=== PATIENT | female | born 1955 | race Caucasian/White ===

== ENCOUNTER → 2018-11-01 08:40 | Outpatient (CLI) | payer MEDICARE, SELFPAY ==
[2018-11-01 09:10] LABS: Hematocrit 42.1 % (36-46); Hemoglobin 13.9 g/dL (12.0-16.0); Mean Corpuscular HGB Conc 32.9 % (30-36); Mean Corpuscular Hemoglobin 28.4 PG (26-34); Mean Corpuscular Volume 86.3 fL (80-100); Platelet Count 248 X10^3/uL (150-400); Red Blood Cell Count 4.88 X10^6/uL (4.0-5.2); White Blood Cell Count 5.9 X10^3/uL (4.5-11.0)
[2018-11-01 09:17] LABS: Hemoglobin A1C% w Est Avg Glu 7.1 % (4.0-6.0)
[2018-11-01 09:31] LABS: Appearance Urine UA CLEAR; Bilirubin Urine UA NEGATIVE (NEGATIVE); Color Urine UA YELLOW; Glucose Urine UA NEGATIVE (Negative); Ketones Urine UA NEGATIVE (NEGATIVE); Leukocyte Esterase Urine UA NEGATIVE (NEGATIVE); Nitrite Urine UA NEGATIVE (Negative); Occult Blood Urine UA TRACE-INTACT (Negative); Protein Urine UA NEGATIVE (Negative); Specific Gravity Urine UA 1.025 (1.000-1.035); Urobilinogen Urine UA 0.2 E.U./dL (0.2)
[2018-11-01 09:50] LABS: Alanine Aminotransferase 43 IU/L (9-52); Albumin 4.5 g/dL (3.5-5.0); Albumin Globulin Ratio 1.6 (1.0-2.8); Alkaline Phosphatase 86 U/L (38-126); Aspartate Aminotransferase 39 IU/L (14-36); BUN Creatinine Ratio 33.3 (6-22); Bilirubin Total 0.7 mg/dL (0.2-1.3); Blood Urea Nitrogen 20 mg/dL (7-17); Calcium 9.7 mg/dL (8.4-10.2); Carbon Dioxide 28 mmol/L (22-32); Chloride 102 mmol/L (98-107); Cholesterol 177 mg/dL (140-199); Creatinine Urine Random 99.2 mg/dL; Estimated Glomerular Filt Rate > 60.0 mL/min (>60); Globulin 2.9 g/dL (1.7-4.1); Glucose 178 mg/dL (80-110); HDL Cholesterol 69 mg/dL (40-60); HEMOLYSIS < 15 (0-50); LDL Cholesterol Calculated 69 mg/dL (<100); Potassium 4.7 mmol/L (3.4-5.1); Sodium 140 mmol/L (137-145); Total Protein 7.4 g/dL (6.3-8.2); Triglycerides 193 mg/dL (35-150)
[2018-11-01 09:55] LABS: Microalbumin Urine Random 0.8 mg/dL (0-1.6)
[2018-11-01 10:18] LABS: Thyroid Stimulating Hormone 2.71 uIU/mL (0.47-4.68)
[2018-11-01 12:52] LABS: Neutrophils Absolute Manual 2478 /uL (3000-5900); RBC Morphology Normal Morphology; Total Cells Counted 100
== END ==
PROVIDERS: PCP Family Medicine; Referring Provider Physician Assistant; Visit Provider Family Medicine
DX: E11.9 Type 2 diabetes mellitus without complications (principal); I10 Essential (primary) hypertension; Z51.81 Encounter for therapeutic drug level monitoring
CPT/HCPCS: 36415; 80053; 80061; 81003; 82043; 82570; 83036; 84443; 85025

== ENCOUNTER → 2018-11-29 13:54 | Outpatient (CLI) | payer MEDICARE, SELFPAY ==
[2018-11-29 18:07] LABS: HIV 1 & 2 Ab/Ag 4th Gen Combo NEGATIVE (NEGATIVE); Hep C Virus Ab w/Reflex Quant NEGATIVE s/c (NEGATIVE)
== END ==
PROVIDERS: PCP Family Medicine; Visit Provider Family Medicine
DX: Z77.21 Contact with and (suspected) exposure to potentially hazardous body fluids (principal)
CPT/HCPCS: 36415; 86803; 87389

== ENCOUNTER → 2019-01-31 08:57 | Outpatient (CLI) | payer MEDICARE, SELFPAY ==
[2019-01-31 09:59] LABS: Hemoglobin A1C% w Est Avg Glu 6.9 % (4.0-6.0)
[2019-01-31 10:01] LABS: Alanine Aminotransferase 33 IU/L (<35); Albumin 4.6 g/dL (3.5-5.0); Albumin Globulin Ratio 1.6 (1.0-2.8); Alkaline Phosphatase 78 U/L (38-126); Aspartate Aminotransferase 35 IU/L (14-36); BUN Creatinine Ratio 24.3 (6-22); Bilirubin Total 0.7 mg/dL (0.2-1.3); Blood Urea Nitrogen 17 mg/dL (7-17); Calcium 9.6 mg/dL (8.4-10.2); Carbon Dioxide 28 mmol/L (22-32); Chloride 101 mmol/L (98-107); Estimated Glomerular Filt Rate > 60.0 mL/min (>60); Globulin 2.8 g/dL (1.7-4.1); Glucose 171 mg/dL (80-110); HEMOLYSIS < 15 (0-50); Potassium 4.5 mmol/L (3.4-5.1); Sodium 138 mmol/L (137-145); Total Protein 7.4 g/dL (6.3-8.2)
== END ==
PROVIDERS: PCP Family Medicine; Visit Provider Family Medicine
DX: Z00.00 Encounter for general adult medical examination without abnormal findings (principal); M85.851 Other specified disorders of bone density and structure, right thigh; Z78.0 Asymptomatic menopausal state; E11.9 Type 2 diabetes mellitus without complications
CPT/HCPCS: 36415; 77080; 80053; 83036

== ENCOUNTER → 2019-09-21 10:04 | Outpatient (CLI) | payer MEDICARE, SELFPAY ==
[2019-09-21 11:11] LABS: Hemoglobin A1C% w Est Avg Glu 7.2 % (4.0-6.0)
[2019-09-21 11:55] LABS: BUN Creatinine Ratio 30.5 (6-22); Blood Urea Nitrogen 18 mg/dL (7-17); Calcium 9.9 mg/dL (8.4-10.2); Carbon Dioxide 26 mmol/L (22-32); Chloride 103 mmol/L (98-107); Estimated Glomerular Filt Rate > 60.0 mL/min (>60); Glucose 170 mg/dL (80-110); HEMOLYSIS < 15 (0-50); Potassium 4.4 mmol/L (3.4-5.1); Sodium 137 mmol/L (137-145)
[2019-09-21 11:59] LABS: Creatinine Urine Random 113.2 mg/dL
[2019-09-21 12:18] LABS: Microalbumi Creatinin Ratio Ur 7.9 ug/mg CR (<30); Microalbumin Urine Random 0.9 mg/dL (0-1.6)
== END ==
PROVIDERS: PCP Student in an Organized Health Care Education/Training Program; Referring Provider Student in an Organized Health Care Education/Training Program; Visit Provider Student in an Organized Health Care Education/Training Program
DX: E11.9 Type 2 diabetes mellitus without complications (principal); I10 Essential (primary) hypertension; E66.01 Morbid (severe) obesity due to excess calories; E78.5 Hyperlipidemia, unspecified; Z68.41 Body mass index [BMI] 40.0-44.9, adult
CPT/HCPCS: 36415; 80048; 82043; 82570; 83036

== ENCOUNTER → 2020-04-02 10:52 | Outpatient (CLI) | payer MEDICARE, SELFPAY ==
[2020-04-02 13:18] LABS: Hemoglobin A1C% w Est Avg Glu 8.2 % (4.0-6.0)
== END ==
PROVIDERS: PCP Student in an Organized Health Care Education/Training Program; Referring Provider Student in an Organized Health Care Education/Training Program; Visit Provider Student in an Organized Health Care Education/Training Program
DX: E11.9 Type 2 diabetes mellitus without complications (principal)
CPT/HCPCS: 36415; 83036

== ENCOUNTER → 2020-09-05 09:25 | Outpatient (CLI) | payer MEDICARE, SELFPAY ==
[2020-09-05 10:44] LABS: Hemoglobin A1C% w Est Avg Glu 7.7 % (4.0-6.0)
== END ==
PROVIDERS: PCP Student in an Organized Health Care Education/Training Program; Referring Provider Student in an Organized Health Care Education/Training Program; Visit Provider Student in an Organized Health Care Education/Training Program
DX: E11.9 Type 2 diabetes mellitus without complications (principal)
CPT/HCPCS: 36415; 83036

== ENCOUNTER → 2020-12-16 13:41 | Outpatient (CLI) | payer MEDICARE, SELFPAY ==
[2020-12-16 14:38] LABS: Creatinine Urine Random 140.3 mg/dL
[2020-12-16 14:43] LABS: Microalbumi Creatinin Ratio Ur 4.9 ug/mg CR (<30); Microalbumin Urine Random 0.7 mg/dL (0-1.6)
[2020-12-16 14:58] LABS: Hemoglobin A1C% w Est Avg Glu 6.7 % (4.0-6.0)
[2020-12-16 15:01] LABS: BUN Creatinine Ratio 29.2 (6-22); Blood Urea Nitrogen 19 mg/dL (7-17); Carbon Dioxide 27 mmol/L (22-32); Chloride 105 mmol/L (98-107); Estimated Glomerular Filt Rate > 60.0 mL/min (>60); Glucose 110 mg/dL (80-110); HEMOLYSIS < 15 (0-50); Potassium 4.7 mmol/L (3.4-5.1); Sodium 140 mmol/L (137-145)
[2020-12-16 15:11] LABS: Vitamin D 25 Hydroxy (D3) 37.3 ng/mL (30.0-100.0)
== END ==
PROVIDERS: PCP Student in an Organized Health Care Education/Training Program; Referring Provider Student in an Organized Health Care Education/Training Program; Visit Provider Student in an Organized Health Care Education/Training Program
DX: E11.9 Type 2 diabetes mellitus without complications (principal); M81.0 Age-related osteoporosis without current pathological fracture; I10 Essential (primary) hypertension
CPT/HCPCS: 36415; 80048; 82043; 82306; 82570; 83036

== ENCOUNTER → 2021-06-03 13:14 | Outpatient (CLI) | payer MEDICARE, SELFPAY ==
[2021-06-03 14:11] LABS: Hemoglobin A1C% w Est Avg Glu 7.5 % (4.0-6.0)
[2021-06-03 14:30] LABS: BUN Creatinine Ratio 31.1 (6-22); Blood Urea Nitrogen 19 mg/dL (7-17); Estimated Glomerular Filt Rate > 60.0 mL/min (>60)
== END ==
PROVIDERS: PCP Student in an Organized Health Care Education/Training Program; Referring Provider Student in an Organized Health Care Education/Training Program; Visit Provider Student in an Organized Health Care Education/Training Program
DX: E11.9 Type 2 diabetes mellitus without complications (principal); I10 Essential (primary) hypertension
CPT/HCPCS: 36415; 82565; 83036; 84520

== ENCOUNTER → 2021-08-31 11:15 | Outpatient (CLI) | payer MEDICARE, SELFPAY ==
[2021-08-31 12:24] LABS: COVID19 -Nasal RAPID Negative (Negative)
== END ==
PROVIDERS: PCP Student in an Organized Health Care Education/Training Program; Visit Provider Surgery
DX: Z01.812 Encounter for preprocedural laboratory examination (principal); Z20.822 Contact with and (suspected) exposure to COVID-19
CPT/HCPCS: 87635; C9803

== ENCOUNTER 2021-09-01 11:59 | Day surgery (SDC) | payer MEDICARE, SELFPAY ==
--- NOTE | 2021-09-01 | PATH_ITS ---
[facility] Accession Number: [id number] . 01 Material submitted: . sigmoid colon - SIGMOID . 01 Clinical history: . [facility] ENCOUNTER FOR SCREENING FOR MALGINANT NEOPLASM . 01 Diagnosis: Sigmoid Colon, Biopsy: Polypoid granulation tissue consistent with inflammatory polyp. Negative for dysplasia and malignancy. MRV 09/04/2021 1318 Local . 01 Electronically signed: . Cindy Larkin MD, Pathologist NPI- [id number] . 01 Gross description: . SIGMOID: Received in formalin is 1 fragment(s) of almendarez, soft tissue measuring 0.3 x 0.2 x 0.2 cm submitted entirely in 1 cassette(s) /CPE 09/03/2021 0508 Local . 01 Pathologist provided ICD-10: K63.5 . 01 CPT . 748218 Specimen Comment: A courtesy copy of this report has been sent to [phone] Performed at: 01 [facility] [address] [place] [address] Suite [facility], [place], [place] [id number] MD Davonte Hubbard MD Phone: [phone]
[2021-09-01 12:25] VITALS: BMI 44.8
[2021-09-01 12:41] VITALS: BP 137/80; PULSE 92; RESP 16; TEMP 36.1; O2SAT 99
[2021-09-01] MEDS: LACTATED RINGERS 1,000 ML 200 ML IV (12:44)
--- NOTE | 2021-09-01 12:54 | PM.HP.1 ---
History of Present Illness History of Present Illness Date Patient Seen: 09/01/21 Time Patient Seen: 12:54 Chief complaint: SDC Narrative: The patient presents for colorectal screening. Previous colonoscopy demonstrated a benign polyp 5 years ago. No personal or family history of colon cancer. On further history denies any recent gastrointestinal symptoms. No nausea, vomiting, abdominal pain, loss of appetite, unexplained weight loss, change in bowel habits, diarrhea, constipation, melena, hematochezia, or bright red blood per rectum. Patient History Medical History Diarrhea DM type 2 with diabetic dyslipidemia History of colon polyps History of colon polyps Osteopenia after menopause Family & Social History Family History Father High cholesterol Mother Diabetes mellitus Heart disease High cholesterol Social History: household members spouse Tobacco & Substance use: Smoking Status Former smoker alcohol intake current alcohol intake frequency a few times a month Substance Use Type does not use Meds Home Medications and Allergies Home Medications Medication Instructions Recorded Confirmed Type [coq10] 1 cap PO QDAY ##0 11/23/16 09/01/21 History [estroven] 1 tab PO QDAY ##0 11/23/16 09/01/21 History calcium carbonate 600 mg-vitamin 1 cap PO BID ##0 11/23/16 09/01/21 History D3 10 mcg (400 unit) capsule (Calcium 600 with Vitamin D3) glipizide 5 mg tablet, extended 5 mg PO DAILY #90 tabs 06/29/21 09/01/21 Rx release 24 hr lisinopril 10 mg tablet 10 mg PO QAM #90 tabs 06/29/21 09/01/21 Rx lovastatin 20 mg tablet 20 mg PO QDAY #90 tabs 06/29/21 09/01/21 Rx metformin 1,000 mg tablet 1,000 mg PO BIDWMEAL #180 tabs 06/29/21 09/01/21 Rx [FISH OIL] 1 tab PO BID 09/01/21 09/01/21 History Allergies Allergy/AdvReac Type Severity Reaction Status Date / Time No Known Drug Allergies Allergy Verified 09/01/21 12:22 Exam Vital Signs (past 8 hours): - 09/01/21 12:41 Temperature 97.0 F L Pulse Rate 92 H Respiratory Rate 16 Blood Pressure 137/80 Pulse Oximetry 99 Oxygen Delivery Method Room Air Oxygen Delivery Method Room Air Narrative Exam Narrative: General adult woman alert oriented no acute distress Chest nonlabored respirations extremities warm well perfused Assessment & Plan Assessment & Plan narrative: The patient requires colorectal screening and colonoscopy is recommended. Technical details were discussed. Risks, benefits, alternatives explained. Risks including but not limited to myocardial infarction, aspiration, bleeding, pain, missed lesion, incomplete examination, need for further radiographic studies, colonic perforation, and need for major abdominal surgery were discussed. All questions were answered to their satisfaction, and they are in agreement with this plan. Time Spent With Patient Critical Care time: I spent a total of [] minutes of critical care time on this patient's care today; this time is exclusive of procedural time.
--- NOTE | 2021-09-01 13:24 | PM.OP.COLON ---
Operative Date/Time/Diagnoses Date of procedure: 09/01/21 Time of procedure: 13:24 Pre-op diagnosis: Personal history of colonic polyps Post-op diagnosis: same Procedure & Clinicians Study performed: Colonoscopy Same procedure as scheduled: Yes Indications: Personal history of colonic polyps Surgeon: Josh Watkins Procedure Notes Procedure in detail: Medications: Conscious sedation using 5mg IV midazolam and 150mcg IV of fentanyl The history and physical was performed/updated and the patient is ASA class is 2. The procedure was discussed in detail with the patient. Potential risks complications including infection, bleeding, missed diagnosis, perforation, need for surgery, and were explained. Their questions were answered and informed consent was obtained. Patient was brought to the procedure room and placed standard monitoring equipment. The patient's vital signs were monitored continuously throughout the entire procedure. Prior to starting time-out was performed. The patient was placed in the left lateral recumbent position. Procedural sedation was administered. Examination began with a thorough inspection of the perianal area there was no evidence of fissures, fistulae, external hemorrhoids or cutaneous malignancy. The colonoscopy scope was then placed into the anal canal and was advanced to the cecum, which was identified by the ileocecal valve, the appendiceal orifice and the confluence of the taenia. The scope was then slowly withdrawn examining colon thoroughly in all directions, irrigating it of any residual stool. FINDINGS 1. Sigmoid-5 mm polyp removed with Jumbo forceps 2. Diverticulosis of sigmoid colon The patient tolerated the procedure well. They will be discharged once criteria are met. The prep was of good/excellent quality. The withdrawl time was 7 minutes. The sedation time was 17 minutes. Specimen(s): other (Sigmoid colon polyp) Complications: none Impression: Colonic polyp Post-procedure Recommendations: Colonoscopy in 5 years and High fiber diet Disposition: same day surgery
[2021-09-01] MEDS: MIDAZOLAM 5 MG/5 ML VIAL IV (13:25)
[2021-09-01] MEDS: fentaNYL 250 MCG/5 ML INJ IV (13:25)
[2021-09-01 13:30] VITALS: BP 133/78; PULSE 74; RESP 14; TEMP 36.2; O2SAT 94
[2021-09-01 13:35] VITALS: BP 132/68; PULSE 74; RESP 14; O2SAT 94
[2021-09-01 13:39] VITALS: BP 136/84; PULSE 76; RESP 12; O2SAT 92
[2021-09-01 13:49] VITALS: BP 131/68; PULSE 82; RESP 14; TEMP 36.4; O2SAT 95
== END 2021-09-01 14:05 | disposition home or self-care (01) ==
PROVIDERS: PCP Internal Medicine; Referring Provider Surgery; Visit Provider Surgery
PROC: 0DJD8ZZ Inspection of Lower Intestinal Tract, Via Natural or Artificial Opening Endoscopic (ICD-10-PCS; CPT 45378; principal; 2021-09-01 13:45)
DX: Z12.11 Encounter for screening for malignant neoplasm of colon (principal); Z86.010 Personal history of colon polyps; E11.69 Type 2 diabetes mellitus with other specified complication; E78.5 Hyperlipidemia, unspecified; Z79.84 Long term (current) use of oral hypoglycemic drugs; K57.30 Diverticulosis of large intestine without perforation or abscess without bleeding; K63.5 Polyp of colon
CPT/HCPCS: 45380; 99152; J2250; J3010

== ENCOUNTER → 2021-09-19 10:02 | Outpatient (CLI) | payer MEDICARE, SELFPAY ==
[2021-09-19 11:15] LABS: BUN Creatinine Ratio 27.7 (6-22); Blood Urea Nitrogen 18 mg/dL (7-17); Estimated Glomerular Filt Rate > 60 mL/min (>60)
[2021-09-19 11:17] LABS: Hemoglobin A1C% w Est Avg Glu 7.1 % (4.0-6.0)
== END ==
PROVIDERS: PCP Internal Medicine; Referring Provider Student in an Organized Health Care Education/Training Program; Visit Provider Student in an Organized Health Care Education/Training Program
DX: E11.9 Type 2 diabetes mellitus without complications (principal); I10 Essential (primary) hypertension
CPT/HCPCS: 36415; 82565; 83036; 84520

== ENCOUNTER → 2022-01-10 10:19 | Outpatient (CLI) | payer MEDICARE, SELFPAY ==
--- NOTE | 2022-01-10 10:21 | DI.RAD.S_ITS ---
PROCEDURE: XR CHEST 2V INDICATIONS: Cough TECHNIQUE: 2 views of the chest were acquired. COMPARISON: None. FINDINGS: Surgical changes and devices: None. Lungs and pleura: Small short horizontal linear opacities in the left lower lung. No dense consolidation, pleural effusion, or pneumothorax. Mediastinum: Mediastinal contours are normal. Heart size is normal. Bones and chest wall: No suspicious bony abnormalities. Prior right distal clavicle resection. Soft tissues appear unremarkable. IMPRESSION: 1. No acute cardiopulmonary disease. 2. Probable scar or minor left lower lung atelectasis. Dictated by: Caro Deng M.D. on 01/10/2022 at 10:44 Approved by: Caro Deng M.D. on 01/10/2022 at 10:46
== END ==
PROVIDERS: PCP Internal Medicine; Referring Provider Nurse Practitioner Family; Visit Provider Nurse Practitioner Family
DX: R05.9 Cough, unspecified (principal)
CPT/HCPCS: 71046

== ENCOUNTER 2022-01-12 15:29 | Emergency (ER) | payer MEDICARE, SELFPAY ==
[2022-01-12 15:50] VITALS: BP 149/70; PULSE 97; RESP 20; TEMP 37.9; O2SAT 96; BMI 42.5
--- NOTE | 2022-01-12 15:53 | DI.RAD.S_ITS ---
PROCEDURE: XR CHEST 2V INDICATIONS: SOB TECHNIQUE: 2 views of the chest were acquired. COMPARISON: [facility], CR, XR CHEST 2V, 01/10/2022, 10:20. FINDINGS: Surgical changes and devices: None. Lungs and pleura: Lungs are clear. No pleural effusions or pneumothorax. Mediastinum: Mediastinal contours are normal. Heart size is normal. Bones and chest wall: No suspicious bony abnormalities. Soft tissues appear unremarkable. IMPRESSION: No acute cardiopulmonary findings. Dictated by: Vidya Tsang M.D. on 01/12/2022 at 16:51 Approved by: Vidya Tsang M.D. on 01/12/2022 at 16:51
--- NOTE | 2022-01-12 16:05 | ED_ITS ---
HPI - Fever <Cindy Cummings, [facility] - Last Filed: 01/12/22 18:34> General Chief Complaint: Upper Respiratory Symptoms Stated Complaint: rt ear pain, virus x 6 days, sore throat Time Seen by Provider: 01/12/22 15:47 History of Present Illness HPI Narrative: This is a 66-year-old female who presents to the emergency department complaining of worsening shortness of breath, right ear pain with drainage since last night, endorses having her 3rd COVID vaccine on 01/04/2022 and then developed a with a fever, sore throat and congestion the next day. Patient has had right ear pain, states that her right ear pain came to a peak last night and she felt a sharp pain in her right ear and has had clear/pink drainage coming from her right ear since then. States that her hearing is different. She has been taking Tylenol and Aleve for her fever but states she had a fever yesterday of 101. Was seen in the walk-in clinic 3 days ago and had a chest x-ray completed, X-ray shows probable scar or minor left lower lobe atelectasis. Patient denies any thoracic surgical history, denies any significant medical conditions other than diabetes. She has a history of hypertension, colon polyps, has had Related Data Home Medications Medication Instructions Recorded Confirmed [estroven] 1 tab PO QDAY ##0 11/23/16 01/10/22 calcium carbonate 600 mg-vitamin 1 cap PO BID ##0 11/23/16 01/10/22 D3 10 mcg (400 unit) capsule (Calcium 600 with Vitamin D3) coenzyme Q10 300 mg capsule (Co 300 mg PO DAILY 09/25/21 01/10/22 Q-10) omega-3 fatty acids 1,000 mg 1,000 mg PO DAILY 09/25/21 01/10/22 capsule Previous Rx's Medication Instructions Recorded lisinopril 10 mg tablet 10 mg PO QAM #90 tabs 06/29/21 lovastatin 20 mg tablet 20 mg PO QDAY #90 tabs 06/29/21 semaglutide 7 mg tablet (Rybelsus) 7 mg PO DAILY #90 tabs 09/25/21 metformin 1,000 mg tablet See Rx Instructions .Route 01/05/22 .COMPLEX #180 tabs benzonatate 100 mg capsule 100 mg PO BID PRN cough #20 caps 01/10/22 benzocaine 15 mg-menthol 2.6 mg 1 jw mucous membrane Q2-4H PRN 01/12/22 lozenges (Cepacol Sore Throat sore throat #16 ea (benzocaine-menthol)) cetirizine 10 mg tablet 20 mg PO BEDTIME 8 days #30 tabs 01/12/22 guaifenesin 600 mg tablet, 600 mg PO BID PRN productive cough 01/12/22 extended release 12 hr (Mucinex) #30 tabs Allergies Allergy/AdvReac Type Severity Reaction Status Date / Time No Known Drug Allergies Allergy Verified 01/10/22 09:50 Review of Systems <NIKOS Castro - Last Filed: 01/12/22 18:34> Review of Systems Narrative: Review of systems is negative for acute abnormalities unless otherwise noted in HPI Patient History <NIKOS Castro - Last Filed: 01/12/22 18:34> Medical History Advanced directives, counseling/discussion Diarrhea DM type 2 with diabetic dyslipidemia History of colon polyps Medicare annual wellness visit, initial Osteopenia after menopause Family History Father High cholesterol Mother Diabetes mellitus Heart disease High cholesterol Social History household members: spouse Smoking Status: Former smoker alcohol intake: current Smoking Status: Former smoker alcohol intake frequency: a few times a month Substance Use Type: does not use Exam <NIKOS Castro - Last Filed: 01/12/22 18:34> Narrative Exam Narrative: Reviewed vitals signs and nursing notes. General: cooperative, comfortable, hoarse voice, appears uncomfortable, tachypneic, coughing, well groomed, febrile to 100 HEENT: symmetrical facial expressions, moist mucous membranes, posterior pharynx with erythema, nasal congestion, no sinus tenderness, left TM is bulging with mild erythema, presumed middle ear effusion, right TM is ruptured, clear/pink drainage coming from right ear canal, no tenderness over mastoids bilaterally Cardiovascular: regular rate and rhythm, no peripheral edema, warm extremities Respiratory: normal effort, coughing, productive cough, able to speak in co mplete sentences, without wheezing, stridor, diminished breath sounds left lower lobe, No retractions GI: abdomen soft, nontender to palpation, nondistended, without masses, rebound tenderness or exquisite tenderness with exam. MSK: moves all extremities, neurovascularly intact, no weakness, normal tone Skin: brisk capillary refill, without pallor or erythema Neuro: normal speech and cognition, A&O x3, ambulatory, clear speech Psych: mental status is grossly normal, congruent mood, normal affect, pleasant and cooperative Initial Vital Signs Initial Vital Signs: Vital Signs Temperature 100.2 F H 01/12/22 15:50 Pulse Rate 97 H 01/12/22 15:50 Respiratory Rate 20 01/12/22 15:50 Blood Pressure 149/70 H 01/12/22 15:50 Pulse Oximetry 96 01/12/22 15:50 Oxygen Delivery Method 01/12/22 15:50 <Edda Ohara DO - Last Filed: 01/17/22 05:10> Initial Vital Signs Initial Vital Signs: Vital Signs Temperature 100.2 F H 01/12/22 15:50 Pulse Rate 97 H 01/12/22 15:50 Respiratory Rate 20 01/12/22 15:50 Blood Pressure 149/70 H 01/12/22 15:50 Pulse Oximetry 96 01/12/22 15:50 Oxygen Delivery Method 01/12/22 15:50 Course <NIKOS Castro - Last Filed: 01/12/22 18:34> Orders Ordered: Discontinued Medications Acetaminophen (Acetaminophen 325 Mg Tablet) 975 mg PO NOW ONE Stop: 01/12/22 15:54 Last Admin: 01/12/22 16:17 Dose: 975 mg Documented By: LAN Amoxicillin/Clavulanate Potassium (Amoxicillin/Clav 875/125 Mg) 1 tab PO NOW ONE Stop: 01/12/22 16:10 Last Admin: 01/12/22 16:21 Dose: 1 tab Documented By: LAN Azithromycin (Azithromycin 250 Mg Tablet) 500 mg PO NOW ONE Stop: 01/12/22 16:10 Last Admin: 01/12/22 16:21 Dose: 500 mg Documented By: LAN Guaifenesin (Guaifenesin Er 600 Mg Tab) 600 mg PO NOW ONE Stop: 01/12/22 15:56 Last Admin: 01/12/22 16:17 Dose: 600 mg Documented By: LAN Ketorolac Tromethamine (Ketorolac 10 Mg Tablet) 10 mg PO NOW ONE Stop: 01/12/22 15:54 Last Admin: 01/12/22 16:16 Dose: 10 mg Documented By: LAN Loratadine (Loratadine 10 Mg Tablet) 10 mg PO NOW ONE Stop: 01/12/22 16:10 Prednisone (Prednisone 20 Mg Tablet) 40 mg PO NOW ONE Stop: 01/12/22 17:35 Vital Signs Vital signs: Vital Signs - 8 hr 01/12/22 15:50 Temperature 100.2 F H Pulse Rate 97 H Respiratory Rate 20 Blood Pressure 149/70 H Pulse Oximetry 96 Oxygen Delivery Method Room Air <Edda Ohara DO - Last Filed: 01/17/22 05:10> Orders Ordered: Discontinued Medications Acetaminophen (Acetaminophen 325 Mg Tablet) 975 mg PO NOW ONE Stop: 01/12/22 15:54 Last Admin: 01/12/22 16:17 Dose: 975 mg Documented By: LAN Amoxicillin/Clavulanate Potassium (Amoxicillin/Clav 875/125 Mg) 1 tab PO NOW ONE Stop: 01/12/22 16:10 Last Admin: 01/12/22 16:21 Dose: 1 tab Documented By: LAN Azithromycin (Azithromycin 250 Mg Tablet) 500 mg PO NOW ONE Stop: 01/12/22 16:10 Last Admin: 01/12/22 16:21 Dose: 500 mg Documented By: LAN Guaifenesin (Guaifenesin Er 600 Mg Tab) 600 mg PO NOW ONE Stop: 01/12/22 15:56 Last Admin: 01/12/22 16:17 Dose: 600 mg Documented By: LAN Ketorolac Tromethamine (Ketorolac 10 Mg Tablet) 10 mg PO NOW ONE Stop: 01/12/22 15:54 Last Admin: 01/12/22 16:16 Dose: 10 mg Documented By: LAN Loratadine (Loratadine 10 Mg Tablet) 10 mg PO NOW ONE Stop: 01/12/22 16:10 Prednisone (Prednisone 20 Mg Tablet) 40 mg PO NOW ONE Stop: 01/12/22 17:35 Vital Signs Vital signs: Vital Signs - 8 hr 01/12/22 15:50 Temperature 100.2 F H Pulse Rate 97 H Respiratory Rate 20 Blood Pressure 149/70 H Pulse Oximetry 96 Oxygen Delivery Method Room Air MDM - Fever <Cindy Cummings, [facility] - Last Filed: 01/12/22 18:34> Medical Records Medical records narrative: PROCEDURE:? XR CHEST 2V ? INDICATIONS:? Cough ? TECHNIQUE:? 2 views of the chest were acquired.? ? COMPARISON:? None. ? FINDINGS:? ? Surgical changes and devices:? None.? ? Lungs and pleura:? Small short horizontal linear opacities in the left lower lung.? No dense consolidation, pleural effusion, or pneumothorax. ? Mediastinum:? Mediastinal contours are normal.? Heart size is normal.? ? Bones and chest wall:? No suspicious bony abnormalities.? Prior right distal clavicle resection.? Soft tissues appear unremarkable.? ? IMPRESSION:? ? 1. No acute cardiopulmonary disease.? ? 2. Probable scar or minor left lower lung atelectasis.? ? ? Dictated by: Caro Deng M.D. on 01/10/2022 at 10:44 ? ? Approved by: Caro Deng M.D. on 01/10/2022 at 10:46 ? Lab Data Labs: Lab Results 01/12/22 Range/Units 16:23 Chlamy pneumoniae PCR Not detected (Not Detect) Adenovirus (PCR) Not detected (Not Detect) B. pertussis DNA (PCR) Not detected (Not Detecte) B.parapertussis DNA PCR Not detected (Not Detecte) Coronavirus OC43 (PCR) Not detected (Not Detect) Coronavirus HKU1 (PCR) Not detected (Not Detect) Coronavirus 229E (PCR) Not detected (Not Detect) SARS-CoV-2 (PCR) Not detected (Not Detecte) Coronavirus NL63 (PCR) Not detected (Not Detect) Human Metapneumovir PCR Not detected (Not Detect) Influenza Type A (PCR) Not detected (Not Detect) Influenza Type B (PCR) Not detected (Not Detect) M. pneumoniae (PCR) Not detected (Not Detect) Parainfluenza 1 (PCR) Not detected (Not Detect) Parainfluenza 2 (PCR) Not detected (Not Detect) Parainfluenza 3 (PCR) Not detected (Not Detect) Parainfluenza 4 (PCR) Not detected (Not Detect) RSV (PCR) Not detected (Not Detect) Entero/Rhino (PCR) Not detected (Not Detect) MDM Narrative Medical decision making narrative: This is a 66-year-old female presents to the emergency department for concern about upper respiratory infection over the last 2 weeks with a negative COVID test at home. She received her 3rd COVID vaccination on 01/03/2022 and developed upper respiratory congestion, right eye conjunctivitis, sore throat, cough, shortness of breath. She was seen in the walk-in clinic and had a chest x-ray completed on 01/10/2022 which showed minor lower left lobe atelectasis, no acute cardiopulmonary disease. Her chest x-ray today does not show acute cardiopulmonary findings, she continues to have a productive cough which is frequent, shortness of breath with exertion, fever today and in the emergency department of 100.2 F. Her respiratory panel PCR is negative for all tested viruses, she is had mild tachypnea with a respiratory rate of 18 to 20, without hypoxia, wheezing, or abnormal breath sounds. Due to patient's length of ill ness, opted to treat her symptoms and her previous x-ray for community-acquired pneumonia, she was given azithromycin 500 mg, Augmentin, loratadine, and 40 mg of prednisone. She is a type 2 diabetic with some comorbidities. She was prescribed cetirizine to use nightly, throat lozenges for her sore throat, Augmentin and azithromycin for a 5 day course. She is encouraged to return to the emergency department for any worsening of her symptoms, stay hydrated, use Tylenol and ibuprofen as needed for fever and pain and dosing were reviewed. Patient is appropriate and amenable to discharge home. Vital signs are stable on repeat examination is unremarkable. Patient has been informed of results. Patient has been given strict return to ER precautions for any new or worsening symptoms. Patient understands to follow up closely with outpatient providers as instructed. Patient understands plan and agrees to discharge home. All questions and concerns answered at this time. <Edda Ohara, DO - Last Filed: 01/17/22 05:10> Lab Data Labs: Lab Results 01/12/22 Range/Units 16:23 Chlamy pneumoniae PCR Not detected (Not Detect) Adenovirus (PCR) Not detected (Not Detect) B. pertussis DNA (PCR) Not detected (Not Detecte) B.parapertussis DNA PCR Not detected (Not Detecte) Coronavirus OC43 (PCR) Not detected (Not Detect) Coronavirus HKU1 (PCR) Not detected (Not Detect) Coronavirus 229E (PCR) Not detected (Not Detect) SARS-CoV-2 (PCR) Not detected (Not Detecte) Coronavirus NL63 (PCR) Not detected (Not Detect) Human Metapneumovir PCR Not detected (Not Detect) Influenza Type A (PCR) Not detected (Not Detect) Influenza Type B (PCR) Not detected (Not Detect) M. pneumoniae (PCR) Not detected (Not Detect) Parainfluenza 1 (PCR) Not detected (Not Detect) Parainfluenza 2 (PCR) Not detected (Not Detect) Parainfluenza 3 (PCR) Not detected (Not Detect) Parainfluenza 4 (PCR) Not detected (Not Detect) RSV (PCR) Not detected (Not Detect) Entero/Rhino (PCR) Not detected (Not Detect) Discharge Plan Departure Patient Disposition: Home Clinical Impression: Rupture of right tympanic membrane, Upper respiratory infection, Increasing shortness of breath Instructions: Pneumonia-Adult, Common Cold, Ruptured Eardrum Activity Restrictions/Additional Instructions: *You have been diagnosed with upper respiratory infection which could be bacterial or viral, a ruptured right tympanic membrane likely related to congestion and eustachian tube dysfunction. Please take 250 mg of azithromycin daily for the next 5 days, take Augmentin twice a day for the next 5 days, this will treat your ear and your upper respiratory infection if bacterial. Please take 20 mg of Zyrtec at nighttime at least until you are better, Mucinex as needed for a productive cough, prednisone 40 mg daily for the next 3 days to help with inflammation and the throat lozenges as needed for sore throat. Please follow-up with your primary care provider if you have any worsening, come back for another evaluation if you continue to have fevers. Thank you for coming in and for your patients today, I hope you feel better soon. *What to do: *Please continue to take your regular medications as directed. [x ] New medication prescriptions sent to your pharmacy: [ [facility]. [ ] New medication written as a paper prescription [ ] No new medications given *Please follow up with your primary care provider in 2-3 days, call for an appointment. Let them know you were seen in the Emergency Department and that we asked that you be seen for follow-up. We will electronically transmit a record of today's note if your PCP is in our system *If you do not have a primary care provider please contact [phone] to establish care with one of the [facility] primary care providers. *Return to Emergency Department if you should have any new, worsening, or concerning symptoms, such as [fever greater than 101F, chills, worsening pain, persistent vomiting or other bothersome symptoms]. Prescriptions: New guaifenesin [Mucinex] 600 mg tablet extended release 12hr 600 mg PO BID PRN (Reason: productive cough) Qty: 30 0RF cetirizine 10 mg tablet 20 mg PO BEDTIME 8 Days Qty: 30 0RF Cepacol Sore Throat (rena-men) 15-2.6 mg lozenge 1 jw mucous membrane Q2-4H PRN (Reason: sore throat) Qty: 16 0RF No Action benzonatate 100 mg capsule 100 mg PO BID PRN (Reason: cough) Qty: 20 0RF calcium carbonate-vitamin D3 [Calcium 600 with Vitamin D3] 600 MG/200 IU capsule 1 cap PO BID Qty: 0 [estroven] 1 tab PO QDAY Qty: 0 lisinopril 10 mg tablet 10 mg PO QAM Qty: 90 3RF lovastatin 20 mg tablet 20 mg PO QDAY Qty: 90 3RF metformin 1,000 mg tablet See Rx Instructions .ROUTE .COMPLEX Qty: 180 3RF Dose Instruction: TAKE 1 TABLET TWICE A DAY WITH MEALS Rx Instructions: TAKE 1 TABLET TWICE A DAY WITH MEALS Co Q-10 300 mg capsule 300 mg PO DAILY omega-3 fatty acids 1,000 mg capsule 1,000 mg PO DAILY Rybelsus 7 mg tablet 7 mg PO DAILY Qty: 90 3RF Rx Instructions: start in 1 month after 3mg prescription completed Referrals: Andrew Neal MD [Primary Care Provider] - Visit Report Forms: Patient Portal/API <Edda Ohara DO - Last Filed: 01/17/22 05:10> Cosign ED Attending Emilyature Attestation: I was immediately available in the department for consultation. Documentation has been reviewed.
[2022-01-12] MEDS: KETOROLAC 10 MG TABLET PO (16:16)
[2022-01-12] MEDS: ACETAMINOPHEN 325 MG TABLET 975 MG PO (16:17)
[2022-01-12] MEDS: guaiFENesin ER 600 MG TAB PO (16:17)
[2022-01-12] MEDS: AMOXICILLIN/CLAV 875/125 MG 1 TAB PO (16:21)
[2022-01-12] MEDS: AZITHROMYCIN 250 MG TABLET 500 MG PO (16:21)
[2022-01-12 17:21] LABS: Adenovirus Not Detected (Not Detect); B. parapertussis Not Detected (Not Detecte); Bordetella pertussis Not Detected (Not Detecte); Chlamydophila pneumoniae Not Detected (Not Detect); Coronavirus 229E Not Detected (Not Detect); Coronavirus HKU1 Not Detected (Not Detect); Coronavirus NL 63 Not Detected (Not Detect); Coronavirus OC43 Not Detected (Not Detect); Human Metapneumovirus Not Detected (Not Detect); Human Rhinovirus/Enterovirus Not Detected (Not Detect); Influenza A Not Detected (Not Detect); Influenza B Not Detected (Not Detect); Mycoplasma pneumoniae Not Detected (Not Detect); Parainfluenza Virus 1 Not Detected (Not Detect); Parainfluenza Virus 2 Not Detected (Not Detect); Parainfluenza Virus 3 Not Detected (Not Detect); Parainfluenza Virus 4 Not Detected (Not Detect); Respiratory Syncytial Virus Not Detected (Not Detect); SARS- CoV-2 Not Detected (Not Detecte)
== END 2022-01-12 18:00 | disposition home or self-care (01) ==
PROVIDERS: Emergency Provider Nurse Practitioner Critical Care Medicine; PCP Internal Medicine; Referring Provider Internal Medicine
DX: H72.91 Unspecified perforation of tympanic membrane, right ear (principal); J06.9 Acute upper respiratory infection, unspecified; R06.02 Shortness of breath; Z20.822 Contact with and (suspected) exposure to COVID-19
CPT/HCPCS: 71046; 87633; 99283

== ENCOUNTER → 2022-01-16 08:37 | Outpatient (CLI) | payer MEDICARE, SELFPAY ==
[2022-01-16 12:09] LABS: Hematocrit 37.2 % (36-46); Hemoglobin 12.4 g/dL (12.0-16.0); Mean Corpuscular HGB Conc 33.4 % (30-36); Mean Corpuscular Hemoglobin 28.4 PG (26-34); Mean Corpuscular Volume 84.9 fL (80-100); Platelet Count 393 X10^3/uL (150-400); Red Blood Cell Count 4.38 X10^6/uL (4.0-5.2); Red Cell Distribution Width 13.8 % (11.6-14.8)
[2022-01-16 13:41] LABS: Hemoglobin A1C% w Est Avg Glu 7.7 % (4.0-6.0)
[2022-01-16 13:57] LABS: Aspartate Aminotransferase 30 IU/L (14-36); BUN Creatinine Ratio 33.3 (6-22); Blood Urea Nitrogen 22 mg/dL (7-17); Calcium 9.5 mg/dL (8.4-10.2); Carbon Dioxide 26 mmol/L (22-32); Chloride 98 mmol/L (98-107); Cholesterol 198 mg/dL (140-199); Estimated Glomerular Filt Rate > 60 mL/min (>60); Glucose 218 mg/dL (80-110); HDL Cholesterol 57 mg/dL (40-60); HEMOLYSIS < 15 (0-50); LDL Cholesterol Calculated 98 mg/dL (<100); Potassium 4.2 mmol/L (3.4-5.1); Sodium 137 mmol/L (137-145); Triglycerides 217 mg/dL (35-150)
[2022-01-16 14:28] LABS: TSH w/ Reflex to FT4 1.18 uIU/mL (0.47-4.68)
[2022-01-16 14:42] LABS: Vitamin B12 519 pg/mL (239-931)
[2022-01-16 17:26] LABS: Microalbumin Urine Random 2.1 mg/dL (0-1.6)
[2022-01-16 17:29] LABS: Creatinine Urine Random 132.1 mg/dL; Microalbumi Creatinin Ratio Ur 15.8 ug/mg CR (<30)
== END ==
PROVIDERS: PCP Internal Medicine; Referring Provider Internal Medicine; Visit Provider Internal Medicine
DX: E11.69 Type 2 diabetes mellitus with other specified complication (principal); I10 Essential (primary) hypertension; E78.5 Hyperlipidemia, unspecified; M85.80 Other specified disorders of bone density and structure, unspecified site; R19.7 Diarrhea, unspecified; Z78.0 Asymptomatic menopausal state; E53.8 Deficiency of other specified B group vitamins
CPT/HCPCS: 36415; 80048; 80061; 82043; 82570; 82607; 83036; 84443; 84450; 85027

== ENCOUNTER → 2022-05-14 10:52 | Outpatient (CLI) | payer MEDICARE, SELFPAY ==
[2022-05-14 12:34] LABS: Hemoglobin A1C% w Est Avg Glu 7.8 % (4.0-6.0)
[2022-05-14 12:49] LABS: Alanine Aminotransferase 36 IU/L (<35); Albumin 4.4 g/dL (3.5-5.0); Albumin Globulin Ratio 1.3 (1.0-2.8); Alkaline Phosphatase 84 U/L (38-126); Aspartate Aminotransferase 41 IU/L (14-36); Bilirubin Total 0.8 mg/dL (0.2-1.3); Blood Urea Nitrogen 18 mg/dL (7-17); Calcium 9.1 mg/dL (8.4-10.2); Carbon Dioxide 27 mmol/L (22-32); Chloride 98 mmol/L (98-107); Estimated Glomerular Filt Rate > 60 mL/min (>60); Globulin 3.3 g/dL (1.7-4.1); Glucose 270 mg/dL (80-110); HEMOLYSIS < 15 (0-50); Potassium 3.9 mmol/L (3.4-5.1); Sodium 138 mmol/L (137-145); Total Protein 7.7 g/dL (6.3-8.2)
== END ==
PROVIDERS: PCP Internal Medicine; Referring Provider Internal Medicine; Visit Provider Internal Medicine
DX: E11.69 Type 2 diabetes mellitus with other specified complication (principal); E78.5 Hyperlipidemia, unspecified; I10 Essential (primary) hypertension
CPT/HCPCS: 36415; 80053; 83036

== ENCOUNTER → 2022-08-17 12:55 | Outpatient (CLI) | payer MEDICARE, SELFPAY ==
[2022-08-17 13:58] LABS: Alanine Aminotransferase 30 IU/L (<35); Albumin 4.7 g/dL (3.5-5.0); Albumin Globulin Ratio 1.5 (1.0-2.8); Alkaline Phosphatase 85 U/L (38-126); Aspartate Aminotransferase 31 IU/L (14-36); BUN Creatinine Ratio 29.7 (6-22); Bilirubin Total 0.7 mg/dL (0.2-1.3); Blood Urea Nitrogen 19 mg/dL (7-17); Calcium 10.1 mg/dL (8.4-10.2); Carbon Dioxide 29 mmol/L (22-32); Chloride 100 mmol/L (98-107); Estimated Glomerular Filt Rate > 60 mL/min (>60); Globulin 3.2 g/dL (1.7-4.1); Glucose 112 mg/dL (80-110); HEMOLYSIS < 15 (0-50); Potassium 4.8 mmol/L (3.4-5.1); Sodium 136 mmol/L (137-145); Total Protein 7.9 g/dL (6.3-8.2)
[2022-08-18 06:07] LABS: x Labcorp Estim. Avg Glu (eAG) 160 mg/dL (.); x Labcorp Hemoglobin A1c 7.2 % (4.8-5.6)
== END ==
PROVIDERS: PCP Internal Medicine; Referring Provider Internal Medicine; Visit Provider Internal Medicine
DX: E11.69 Type 2 diabetes mellitus with other specified complication (principal); E78.5 Hyperlipidemia, unspecified; I10 Essential (primary) hypertension; K75.81 Nonalcoholic steatohepatitis (NASH)
CPT/HCPCS: 36415; 80053; 83036

== ENCOUNTER → 2022-11-16 13:47 | Outpatient (CLI) | payer MEDICARE, SELFPAY ==
[2022-11-16 15:23] LABS: Hemoglobin A1C% w Est Avg Glu 6.6 % (4.0-6.0)
[2022-11-16 15:35] LABS: Aspartate Aminotransferase 37 IU/L (14-36); BUN Creatinine Ratio 36.4 (6-22); Blood Urea Nitrogen 24 mg/dL (7-17); Calcium 9.6 mg/dL (8.4-10.2); Carbon Dioxide 26 mmol/L (22-32); Chloride 102 mmol/L (98-107); Cholesterol 185 mg/dL (140-199); Estimated Glomerular Filt Rate > 60 mL/min (>60); Glucose 114 mg/dL (80-110); HDL Cholesterol 70 mg/dL (40-60); LDL Cholesterol Calculated 44 mg/dL (<100); Potassium 4.1 mmol/L (3.4-5.1); Sodium 139 mmol/L (137-145); Triglycerides 357 mg/dL (35-150)
[2022-11-16 15:36] LABS: HEMOLYSIS 52 (0-50)
[2022-11-16 16:34] LABS: Creatinine Urine Random 192.5 mg/dL
[2022-11-16 16:37] LABS: Microalbumi Creatinin Ratio Ur 26.4 ug/mg CR (<30); Microalbumin Urine Random 5.1 mg/dL (0-1.6)
== END ==
PROVIDERS: PCP Internal Medicine; Referring Provider Internal Medicine; Visit Provider Internal Medicine
DX: E11.69 Type 2 diabetes mellitus with other specified complication (principal); I10 Essential (primary) hypertension; E78.5 Hyperlipidemia, unspecified
CPT/HCPCS: 36415; 80048; 80061; 82043; 82570; 83036; 84450

== ENCOUNTER → 2023-05-24 10:17 | Outpatient (CLI) | payer MEDICARE, SELFPAY ==
[2023-05-24 11:29] LABS: BUN Creatinine Ratio 29.4 (6-22); Blood Urea Nitrogen 20 mg/dL (7-17); Carbon Dioxide 27 mmol/L (22-32); Chloride 104 mmol/L (98-107); Estimated Glomerular Filt Rate > 60 mL/min (>60); Glucose 222 mg/dL (80-110); HEMOLYSIS < 15 (0-50); Potassium 4.4 mmol/L (3.4-5.1); Sodium 138 mmol/L (137-145)
[2023-05-24 11:31] LABS: Hemoglobin A1C% w Est Avg Glu 6.9 % (4.0-6.0)
== END ==
PROVIDERS: PCP Internal Medicine; Referring Provider Internal Medicine; Visit Provider Internal Medicine
DX: E11.69 Type 2 diabetes mellitus with other specified complication (principal); E78.5 Hyperlipidemia, unspecified; I10 Essential (primary) hypertension
CPT/HCPCS: 36415; 80048; 83036

== ENCOUNTER → 2023-11-22 08:31 | Outpatient (CLI) | payer MEDICARE, SELFPAY ==
[2023-11-22 11:01] LABS: Microalbumin Urine Random 2.2 mg/dL (0-1.6)
[2023-11-22 11:03] LABS: Creatinine Urine Random 173.53 mg/dL
[2023-11-22 11:03] LABS: Aspartate Aminotransferase 28 IU/L (14-36); BUN Creatinine Ratio 25.8 (6-22); Blood Urea Nitrogen 17 mg/dL (7-17); Calcium 9.2 mg/dL (8.4-10.2); Carbon Dioxide 23 mmol/L (22-32); Chloride 106 mmol/L (98-107); Cholesterol 172 mg/dL (140-199); Estimated Glomerular Filt Rate > 60 mL/min (>60); Glucose 128 mg/dL (80-110); HDL Cholesterol 88 mg/dL (40-60); HEMOLYSIS < 15 (0-50); LDL Cholesterol Calculated 53 mg/dL (<100); Potassium 4.3 mmol/L (3.4-5.1); Sodium 137 mmol/L (137-145); Triglycerides 153 mg/dL (35-150)
[2023-11-22 14:15] LABS: Hemoglobin A1C% w Est Avg Glu 6.1 % (4.0-6.0)
== END ==
PROVIDERS: PCP Internal Medicine; Referring Provider Internal Medicine; Visit Provider Internal Medicine
DX: E11.69 Type 2 diabetes mellitus with other specified complication (principal); E78.5 Hyperlipidemia, unspecified; I10 Essential (primary) hypertension
CPT/HCPCS: 36415; 80048; 80061; 82043; 82570; 83036; 84450

== ENCOUNTER → 2024-05-22 11:01 | Outpatient (CLI) | payer MEDICARE, SELFPAY ==
[2024-05-22 12:02] LABS: BUN Creatinine Ratio 26.9 (6-22); Blood Urea Nitrogen 18 mg/dL (7-17); Calcium 9.9 mg/dL (8.4-10.2); Carbon Dioxide 29 mmol/L (22-32); Chloride 101 mmol/L (98-107); Estimated Glomerular Filt Rate > 60 mL/min (>60); Glucose 180 mg/dL (80-110); HEMOLYSIS < 15 (0-50); Potassium 4.6 mmol/L (3.4-5.1); Sodium 140 mmol/L (137-145)
== END ==
LOC: LAB 11:02
PROVIDERS: PCP Internal Medicine; Referring Provider Internal Medicine; Visit Provider Internal Medicine
DX: E11.69 Type 2 diabetes mellitus with other specified complication (principal); E78.5 Hyperlipidemia, unspecified
CPT/HCPCS: 36415; 80048; 83036

== ENCOUNTER → 2024-12-05 10:18 | Outpatient (CLI) | payer MEDICARE, SELFPAY ==
[2024-12-05 12:09] LABS: Hemoglobin A1C% w Est Avg Glu 6.3 % (4.0-6.0)
[2024-12-05 12:34] LABS: Blood Urea Nitrogen 19 mg/dL (7-17); Calcium 9.8 mg/dL (8.4-10.2); Carbon Dioxide 25 mmol/L (22-32); Chloride 104 mmol/L (98-107); Cholesterol 173 mg/dL (140-199); Estimated Glomerular Filt Rate > 60 mL/min (>60); Glucose 113 mg/dL (70-99); HDL Cholesterol 82 mg/dL (40-60); HEMOLYSIS < 15 (0-50); Potassium 4.4 mmol/L (3.4-5.1); Sodium 140 mmol/L (137-145); Triglycerides 151 mg/dL (35-150)
[2024-12-05 12:42] LABS: Microalbumi Creatinin Ratio Ur 10.0 ug/mg CR (<30)
== END ==
PROVIDERS: PCP Internal Medicine; Referring Provider Internal Medicine; Visit Provider Internal Medicine
DX: E11.69 Type 2 diabetes mellitus with other specified complication (principal); E78.5 Hyperlipidemia, unspecified; I10 Essential (primary) hypertension
CPT/HCPCS: 36415; 80048; 80061; 82043; 82570; 83036; 84450

== ENCOUNTER → 2024-12-11 09:42 | Outpatient (CLI) | payer MEDICARE, SELFPAY ==
[2024-12-11 10:38] LABS: Hematocrit 39.6 % (36-46); Hemoglobin 13.4 g/dL (12.0-16.0); Mean Corpuscular HGB Conc 33.8 % (30-36); Mean Corpuscular Hemoglobin 28.8 PG (26-34); Mean Corpuscular Volume 84.9 fL (80-100); Platelet Count 247 X10^3/uL (150-400)
[2024-12-11 11:40] LABS: TSH w/ Reflex to FT4 1.70 uIU/mL (0.47-4.68)
== END ==
PROVIDERS: PCP Internal Medicine; Referring Provider Internal Medicine; Visit Provider Internal Medicine
DX: E11.69 Type 2 diabetes mellitus with other specified complication (principal); E78.5 Hyperlipidemia, unspecified; I10 Essential (primary) hypertension
CPT/HCPCS: 36415; 84443; 85027

== ENCOUNTER → 2024-12-13 10:43 | Outpatient (CLI) | payer MEDICARE, SELFPAY ==
--- NOTE | 2024-12-13 10:44 | DI.RAD.S_ITS ---
PROCEDURE: XR DEXA AXIAL SKELETON INDICATIONS: osteopenia COMPARISON: [facility], , XR DEXA AXIAL SKELETON, 01/31/2019, 10:25. FINDINGS: Lumbar Spine: Bone mineral density is 0.92 g/cm2, T score -1.2, osteopenia Left Femoral Neck: Bone mineral density 0.7 g/cm2, T score -1.3. Left Hip: Bone mineral density is 0.92 g/cm2, T score -0.2, osteopenia. Fracture Risk Calculation (when applicable): 10-year fracture risk of a major osteoporotic fracture 8.4 percent and of a hip fracture 1.0 percent. (T score greater or equal to -1.0 to: NORMAL) (T score from -1.1 to -2.4: OSTEOPENIA) (T score less than or equal to -2.5: OSTEOPOROSIS) IMPRESSION: Osteopenia Follow-up guidelines as follows: Osteoporosis: Consider a repeat DEXA and Vertebral Fracture Assessment (VFA) exam in 2 years or sooner if medically necessary, to reassess this patient's status. Osteopenia: Consider a repeat DEXA in 2-3 years to reassess this patient's status, or if there is a new clinical indication. Normal: Consider a repeat DEXA in 5 years or sooner, or if there is a new clinical indication. All treatment decisions require clinical judgment and consideration of individual patient factors, including patient preferences, comorbidities, previous drug use, risk factors not captured in the FRAX model (e.g., frailty, falls, vitamin D deficiency, increased bone turnover, interval significant decline in bone density ) and possible under- or over-estimation of fracture risk by FRAX. In addition, the NOF Guide recommends that FDA-approved medical therapies be considered in postmenopausal women and men age >= 50 years with a: * Hip or vertebral (clinical or morphometric) fracture * T-score of <=-2.5 at the spine or hip * Ten-year fracture probability by FRAX of >= 3% for hip fracture or >=20% for major osteoporotic fracture. Dictated by: Baltazar Rodarte M.D. on 12/13/2024 at 16:48 Approved by: Baltazar Rodarte M.D. on 12/13/2024 at 16:49
== END ==
LOC: RAD 10:44
PROVIDERS: PCP Internal Medicine; Referring Provider Internal Medicine; Visit Provider Internal Medicine
DX: M85.89 Other specified disorders of bone density and structure, multiple sites (principal); Z78.0 Asymptomatic menopausal state
CPT/HCPCS: 77080